=== PATIENT | male | born 1990 | race Caucasian/White ===

== ENCOUNTER 2022-07-20 17:29 | Emergency (ER) | payer BC ==
[2022-07-20 18:30] VITALS: BP 125/90; PULSE 61
== END 2022-07-20 20:30 | disposition home or self-care (01) ==
LOC: JD.ED 17:29
DX: S99.911A Unspecified injury of right ankle, initial encounter (principal); I10 Essential (primary) hypertension; F17.210 Nicotine dependence, cigarettes, uncomplicated; Z88.1 Allergy status to other antibiotic agents; Z79.899 Other long term (current) drug therapy; X50.1XXA Overexertion from prolonged static or awkward postures, initial encounter
CPT/HCPCS: 73610-26-RT; 73610-RT; 99283